=== PATIENT | female | born 1930 | race Caucasian/White ===

== ENCOUNTER 2018-08-27 00:43 | Inpatient (IN) | payer MEDICARE ==
[~2018-08-27] VITALS: Ht 149.9 cm; Wt 37.1 kg
--- NOTE | 2018-08-27 01:06 | NUR ---
pt resting in bed, no complaints at this time, sent from [facility] for blood clot
[2018-08-27] MEDS ORDERED: SODIUM CHLORIDE 0.9% 1,000 ML IV SCH (02:13)
--- NOTE | 2018-08-27 02:21 | NUR ---
REPORT TO anniver
[2018-08-27] MEDS ORDERED: POTASSIUM CHLORIDE 40 MEQ in SODIUM CHLORIDE 0.9% 500 ML IV ONE (02:30)
[2018-08-27] MEDS ORDERED: BISACODYL 10 MG SUPP PR PRN (02:30)
[2018-08-27] MEDS ORDERED: POLYETHYLENE GLYCOL 17 GM PACKET PO PRN (02:30)
[2018-08-27] MEDS ORDERED: ONDANSETRON 2MG/ML, 2ML IVPush PRN (02:30)
[2018-08-27] MEDS ORDERED: ACETAMINOPHEN 325 MG TABLET PO PRN (02:30)
[2018-08-27] MEDS ORDERED: hydrALAzine 20 MG/ML, 1ML IVPush PRN (02:30)
[2018-08-27] MEDS ORDERED: ONDANSETRON ODT 4 MG PO PRN (02:30)
[2018-08-27] MEDS ORDERED: PROMETHAZINE 25 MG/ML, 1ML IM PRN (02:30)
[2018-08-27] MEDS: HEPARIN 5,000 UNITS/ML, 1ML SQ SCH ×4 (06:00→22:00)
[2018-08-27 06:31] VITALS: BP 124/60
[2018-08-27 07:25] VITALS: BP 152/70
[2018-08-27] MEDS: SENNA/DOCUSATE TABLET PO SCH (09:00)
[2018-08-27 12:10] VITALS: BP 140/73
[2018-08-27 12:48] LABS: ALBUMIN 2.5 g/dL (3.4-5.0); ANION GAP 3 mmol/L (5-15); CHLORIDE 116 mmol/L (98-107)
[2018-08-27 12:49] LABS: BASOPHILS # (AUTO) 0.01 x10^3/uL (0-0.1); BASOPHILS % (AUTO) 0 % (0-1); EOSINOPHILS # (AUTO) 0.02 x10^3/uL (0-0.4); EOSINOPHILS % (AUTO) 0 % (1-7); LYMPHOCYTES # (AUTO) 0.56 x10^3/uL (1-3.4); LYMPHOCYTES % (AUTO) 7 % (22-44); MD NO; MEAN CORPUSCULAR HEMOGLOBIN 29.7 pg (27.0-34.8); MEAN CORPUSCULAR HGB CONC 33.1 g/dL (32.4-35.8); MEAN CORPUSCULAR VOLUME 89.9 fL (80-100); MONOCYTES % (AUTO) 7 % (2-9); NEUTROPHILS # (AUTO) 6.59 x10^3/uL (1.8-6.8); NEUTROPHILS % (AUTO) 86 % (42-75); PLATELET COUNT 358 x10^3/uL (130-400); RED BLOOD COUNT 3.32 x10^6/uL (3.82-5.3); RED CELL DISTRIBUTION WIDTH 14.9 % (9.6-15.2)
[2018-08-27 12:53] LABS: FREE T4 (FREE THYROXINE) 1.3 ng/dL (0.76-1.46); THYROID STIMULATING HORMONE 1.22 mIU/L (0.358-3.740)
[2018-08-27 12:55] LABS: ALANINE AMINOTRANSFERASE 23 U/L (12-78); ALKALINE PHOSPHATASE 164 U/L (45-117); BILIRUBIN,TOTAL 0.6 mg/dL (0.2-1.0); CHOL/HDL RATIO 3.3; CHOLESTEROL, TOTAL 187 mg/dL (140-239); HDL CHOL % 30 % (28-40); HDL CHOLESTEROL (DIRECT) 57 mg/dL (40-60); LDL CHOLESTEROL,CALCULATED 111 mg/dL (54-169); LDL/HDL RATIO 1.9 (0.5-3.0); TOTAL PROTEIN 7.3 g/dL (6.4-8.2); TRIGLYCERIDES 97 mg/dL (50-200); VLDL CHOLESTEROL 19 mg/dL (0-25)
[2018-08-27 13:07] LABS: HEMOGLOBIN A1C 5.6 % (4.2-6.3)
[2018-08-27 15:43] LABS: MICROSCOPIC AUTO
[2018-08-27 15:49] LABS: CULTURE INDICATED? NO
[2018-08-27] MEDS: SODIUM CHLORIDE 0.45% 1,000 ML IV SCH (15:56)
[2018-08-27 21:04] VITALS: BP 156/64
[2018-08-28 03:58] VITALS: BP 148/72
[2018-08-28 05:28] LABS: ALBUMIN 2.4 g/dL (3.4-5.0); ANION GAP 8 mmol/L (5-15); CALCIUM 8.8 mg/dL (8.5-10.1); CHLORIDE 112 mmol/L (98-107)
[2018-08-28 05:34] LABS: ALANINE AMINOTRANSFERASE 20 U/L (12-78); ALKALINE PHOSPHATASE 169 U/L (45-117); BILIRUBIN,TOTAL 0.5 mg/dL (0.2-1.0); CREATININE 0.49 mg/dL (0.55-1.02); TOTAL PROTEIN 6.6 g/dL (6.4-8.2)
[2018-08-28] MEDS: HEPARIN 5,000 UNITS/ML, 1ML SQ SCH ×4 (06:00→21:59)
[2018-08-28 07:14] VITALS: BP 163/73
[2018-08-28] MEDS: SENNA/DOCUSATE TABLET PO SCH (09:12)
[2018-08-28] MEDS: ASPIRIN 81 MG TABLET CHEW PO SCH (09:12)
[2018-08-28] MEDS: SODIUM CHLORIDE 0.45% 1,000 ML IV SCH ×2 (09:21→21:56)
[2018-08-28 13:46] VITALS: BP 154/66
[2018-08-28 19:59] VITALS: BP 158/81
[2018-08-28] MEDS: ATORVASTATIN 40 MG TABLET PO SCH ×2 (21:00→21:56)
[2018-08-29 01:55] VITALS: BP 160/71
[2018-08-29 05:13] LABS: ALANINE AMINOTRANSFERASE 20 U/L (12-78); ALBUMIN 2.5 g/dL (3.4-5.0); ANION GAP 5 mmol/L (5-15); CALCIUM 8.5 mg/dL (8.5-10.1); CHLORIDE 113 mmol/L (98-107); CREATININE 0.52 mg/dL (0.55-1.02)
[2018-08-29 05:15] LABS: ALKALINE PHOSPHATASE 147 U/L (45-117); BILIRUBIN,TOTAL 0.5 mg/dL (0.2-1.0); TOTAL PROTEIN 6.4 g/dL (6.4-8.2)
[2018-08-29 05:17] LABS: BASOPHILS # (AUTO) 0.03 x10^3/uL (0-0.1); BASOPHILS % (AUTO) 1 % (0-1); EOSINOPHILS # (AUTO) 0.15 x10^3/uL (0-0.4); EOSINOPHILS % (AUTO) 3 % (1-7); LYMPHOCYTES # (AUTO) 0.77 x10^3/uL (1-3.4); LYMPHOCYTES % (AUTO) 15 % (22-44); MD NO; MEAN CORPUSCULAR HEMOGLOBIN 28.5 pg (27.0-34.8); MEAN CORPUSCULAR HGB CONC 32.4 g/dL (32.4-35.8); MEAN CORPUSCULAR VOLUME 87.9 fL (80-100); MEAN PLATELET VOLUME 8.9 fL (7.4-10.4); MONOCYTES # (AUTO) 0.45 x10^3/uL (0.2-0.8); MONOCYTES % (AUTO) 9 % (2-9); NEUTROPHILS # (AUTO) 3.62 x10^3/uL (1.8-6.8); NEUTROPHILS % (AUTO) 72 % (42-75); PLATELET COUNT 335 x10^3/uL (130-400); RED BLOOD COUNT 3.32 x10^6/uL (3.82-5.3); RED CELL DISTRIBUTION WIDTH 14.6 % (9.6-15.2)
[2018-08-29] MEDS: HEPARIN 5,000 UNITS/ML, 1ML SQ SCH ×3 (05:21→21:49)
[2018-08-29 08:38] VITALS: BP 161/77
[2018-08-29] MEDS: SENNA/DOCUSATE TABLET PO SCH (09:49)
[2018-08-29] MEDS: ASPIRIN 81 MG TABLET CHEW PO SCH (09:49)
[2018-08-29] MEDS ORDERED: POTASSIUM CHLORIDE 40 MEQ in SODIUM CHLORIDE 0.9% 500 ML IV ONE (10:00)
[2018-08-29 13:46] VITALS: BP 133/68
[2018-08-29] MEDS: SODIUM CHLORIDE 0.45% 1,000 ML IV SCH (15:36)
[2018-08-29 18:37] VITALS: BP 154/69
[2018-08-29] MEDS: ATORVASTATIN 40 MG TABLET PO SCH (21:49)
[2018-08-30 02:03] VITALS: BP 158/67
[2018-08-30] MEDS: SODIUM CHLORIDE 0.45% 1,000 ML IV SCH (03:45)
[2018-08-30] MEDS: HEPARIN 5,000 UNITS/ML, 1ML SQ SCH ×2 (06:00→13:15)
[2018-08-30] MEDS: SENNA/DOCUSATE TABLET PO SCH (08:36)
[2018-08-30] MEDS: ASPIRIN 81 MG TABLET CHEW PO SCH (08:36)
[2018-08-30 09:47] VITALS: BP 128/67
[2018-08-30] MEDS ORDERED: POLY17PO5 PO (11:52)
[2018-08-30] MEDS ORDERED: ACET325T14 PO (11:52)
[2018-08-30] MEDS ORDERED: ATOR40TA78 PO (11:52)
[2018-08-30] MEDS ORDERED: ASPI-515 PO (11:52)
[2018-08-30] MEDS ORDERED: SENN-177 PO (11:52)
== END 2018-08-30 14:00 | DRG 299 ==
LOC: ED 02:10 → EDIP 02:11 → 4NOR 02:30
PROVIDERS: ADMIT Internal Medicine; ATTEND Internal Medicine
DX: I74.5 Embolism and thrombosis of iliac artery (principal); E43 Unspecified severe protein-calorie malnutrition; F03.91 Unspecified dementia, unspecified severity, with behavioral disturbance; E87.1 Hypo-osmolality and hyponatremia; E87.0 Hyperosmolality and hypernatremia; Z68.1 Body mass index [BMI] 19.9 or less, adult; R62.7 Adult failure to thrive; E87.6 Hypokalemia; D64.9 Anemia, unspecified; Z87.891 Personal history of nicotine dependence
CPT/HCPCS: 36415; 80053; 80061; 81001; 83036; 83735; 84100; 84439; 84443; 85025; 87040; 93005; 93922; 93925; 99285; G0378; J1644; J3480; J7030; J7040